=== PATIENT | female | born 1950 | race Caucasian/White ===

== ENCOUNTER 2024-04-16 02:54 | Day surgery (SDC) | payer MEDICARE, SELFPAY ==
[2024-04-06 08:59] VITALS: BMI 33.4
--- NOTE | 2024-04-06 09:21 | PC.NURSE ---
Report to the Outpatient Waiting Room, entrance under the green pavilion located off [facility], at time __0715am on date _04/16/24 . Planned Procedure Time: __09:15am .? Time changes happen often and if your time is changed the preop area will call you the afternoon before. - You and your visitor will be asked to self-screen and do not enter if you have any COVID symptoms. Please call surgeon if you need to reschedule. - A mask is optional within the hospital at this time. Patients may have clear liquids (water, carbonated beverages, clear teas, apple juice) until 3 hours prior to surgery with a maximum of 20 ounces. - No food from midnight until time of surgery and no smoking. This includes no chewing gum, candy or mints.(06:15am) Take only the following medications with a SIP of water on the morning of surgery: ___None DO NOT STOP ANY OF YOUR OTHER PRESCRIPTION MEDICATIONS PRIOR TO SURGERY EXCEPT THE FOLLOWING Medications to discontinue per physician Hold all Vitamins and supplements for 3 days prior per Anesthesia Date to take last dose____04/12/24 Please no make-up, nail beninese, hairspray, perfume, deodorant, or body powder the day of surgery.? No jewelry (including any body piercings) or valuables the day of surgery, leave them at home.? Please take a shower or bath the night before, or the morning of, surgery with an antibacterial soap.? Wear comfortable, loose fitting clothing.? - Jewelry must be removed prior to entering the operating room.? Rings and piercings that are not removed may be cut off. - The hospital will not accept responsibility for valuables.? - Please leave all valuables, including medications, at home the day of surgery. If you are going home after surgery, a licensed [employer] driver must drive you home.? - NO public transportation without another adult if you receive anesthesia. - We recommend that an adult stay with you for 24 hours following discharge. - We also recommend that you do not drive, make important decision, drink alcoholic beverages, or take any drugs that were not prescribed by your health care provider for at least 24 hours after your discharge time. Follow any additional instructions given to you from your surgeon. Telephone instructions given to patient and asked if any additional questions and then verbalized understanding. Patient advised to call surgeon office or pre surgery nurse liaison [phone] if any additional questions.
--- NOTE | 2024-04-11 12:11 | PM.IMHP ---
H&P: HPI History of Present Illness Date/Time: 04/11/24 12:11 Chief Complaint: TIMBO Narrative: mixed incontinence. Surgical treatment for TIMBO Review of Systems Review of Systems: All systems reviewed & are unremarkable except as noted in HPI and below [facility] Social History Social History Smoking status: Never smoker Alcohol intake: never Substance use: never Living arrangements: with family Additional living arrangements comments: Spiritual care concerns: No Meds Home Medications and Allergies Home Medications Medication Instructions Recorded Confirmed Type albuterol sulfate 90 mcg/actuation 90 mcg inhalation PRN PRN Wheezing 04/06/24 04/06/24 History aerosol inhaler calcium 500 mg-D3 400 unit-K 15 1 tablet PO DAILY 04/06/24 04/06/24 History mcg-folic 200 [id number] tablet ferrous gluconate 324 mg (38 mg 324 mg PO DAILY 04/06/24 04/06/24 History iron) tablet fluticasone fur. 200 mcg-umeclid 200 inh inhalation DAILY 04/06/24 04/06/24 History 62.5 mcg-vilant 25 mcg inhalat.powder (Trelegy Ellipta) fluticasone propionate 50 See Rx Instructions .Route .COMPLEX 04/06/24 04/06/24 History mcg/actuation nasal spray,suspension montelukast 10 mg tablet 10 mg PO HS 04/06/24 04/06/24 History multivitamin with minerals-folic 1 tablet PO DAILY 04/06/24 04/06/24 History acid 12 mcg chewable tablet (Centrum Adults) simvastatin 20 mg tablet 20 mg PO DAILY 04/06/24 04/06/24 History Allergies Allergy/AdvReac Type Severity Reaction Status Date / Time No Known Allergies Allergy Verified 04/06/24 08:58 Exam Narrative: + urethral mobility Assessment and Plan Assessment and plan (1) TIMBO (stress urinary incontinence, female): Code(s): N39.3 - Stress incontinence (female) (male) Status: Acute Assessment and Plan: urethral sling
--- NOTE | 2024-04-16 07:17 | WPDHPUPDATE1 ---
History and Physical Update Update Date/Time: 04/16/24 07:17 History and Physical has been reviewed, including an updated exam of the patient. There are NO changes in the patient's condition. Risks, benefits, and alternatives have been discussed and questions answered. Patient agrees to proceed with procedure.
[2024-04-16 08:32] LABS: Hemoglobin 11.7 g/dL (12.0-15.0)
--- NOTE | 2024-04-16 08:42 | P.PNAN_ITS ---
Anes - Initial Pre Proc Eval Procedure: Operation Date: 04/16/24 09:45 Proposed Procedures p Urethral Sling - Rk Jane MD Date/Time: 04/16/24 08:42 Surgeon: Rk Jane MD Pre Op Diagnosis: stress incont Patient Data Age: 73 Gender: F Height: 1.68 m Weight: 94 kg Allergies Allergy/AdvReac Type Severity Reaction Status Date / Time No Known Allergies Allergy Verified 04/06/24 08:58 Home Medications ?Medication ?Instructions ?Recorded ?Confirmed ?Type albuterol sulfate 90 mcg/actuation 90 mcg inhalation PRN PRN Wheezing 04/06/24 04/06/24 History aerosol inhaler calcium 500 mg-D3 400 unit-K 15 1 tablet PO DAILY 04/06/24 04/06/24 History mcg-folic 200 [id number] tablet ferrous gluconate 324 mg (38 mg 324 mg PO DAILY 04/06/24 04/06/24 History iron) tablet fluticasone fur. 200 mcg-umeclid 200 inh inhalation DAILY 04/06/24 04/06/24 History 62.5 mcg-vilant 25 mcg inhalat.powder (Trelegy Ellipta) fluticasone propionate 50 See Rx Instructions .Route .COMPLEX 04/06/24 04/06/24 History mcg/actuation nasal spray,suspension montelukast 10 mg tablet 10 mg PO HS 04/06/24 04/06/24 History multivitamin with minerals-folic 1 tablet PO DAILY 04/06/24 04/06/24 History acid 12 mcg chewable tablet (Centrum Adults) simvastatin 20 mg tablet 20 mg PO DAILY 04/06/24 04/06/24 History hydrocodone 5 mg-acetaminophen 325 1 tablet PO Q6H PRN pain #20 tabs 04/16/24 Rx mg tablet Laboratory Tests 04/16/24 08:26 Hgb Pending Hct Pending Patient hx anesthesia problems: none Family hx anesthesia problems: none Results Review: All pre-operative results and documents have been reviewed as part of the pre- operative evaluation. [facility] Past Medical History Medical History (Updated 04/16/24 @ 08:43 by Juan Bowman MD) Asthma Obesity Social History Social History Smoking status: Never smoker Alcohol intake: never Substance use: never Living arrangements: with family Additional living arrangements comments: Spiritual care concerns: No Anes - Eval Final PreProcedure Day of Procedure 04/16/24 08:42 Patient weight: obese Heart: regular rate and rhythm Lungs: clear to auscultation Airway: Mallampati scale class II Neurological: alert and oriented Last oral intake: >/= 8 hours ASA classification: III Emergent: no Anesthetic plan: proceed Anesthesia type and monitoring: general LMA and standard monitoring Results Review: All pre-operative results and documents have been reviewed as part of the pre- operative evaluation. Informed Consent: The patient's anesthetic plan and its attendant risks and benefits were discussed with the patient/family/POA. Questions were solicited and answers provided to the satisfaction of the patient/family/POA.
[2024-04-16 08:54] VITALS: BP 149/73; PULSE 71; TEMP 36.2; O2SAT 99; BMI 34.4
[2024-04-16] MEDS: ceFAZolin 2 GM/D5W 50 ML 2 GM/50 ML BAG IVPB (09:16)
--- NOTE | 2024-04-16 09:38 | SUR.OPER ---
10 ml of Bupivacaine 0.5% with epinephrine given
--- NOTE | 2024-04-16 09:51 | W.PM.PROC2 ---
Procedure Note - Detailed Date of Procedure 04/16/24 Pre-op Diagnosis stress incont Post-op Diagnosis Same Procedure Performed mid urethral sling cystoscopy Surgeon Rk Jane MD Anesthesia MAC and Local Indications This is a female with confirm stress urinary incontinence. She desires surgical correction. She understands the risks of bleeding, infection, injury to the urinary tract, vaginal mesh extrusion, urinary tract mesh erosion, obstructive voiding requiring a secondary procedure, hip and leg pain, dyspareunia, inability to improve overactive bladder symptoms. She agrees to proceed. Description of Procedure She was correctly identified. Informed consent obtained. She was brought the operating room. She was given appropriate anesthesia. She was given appropriate perioperative antibiotics. A time-out performed. I marked out the site of the inner thigh incisions. I anesthetized the skin and made those incisions. I anesthetized the anterior vaginal wall over the mid urethra. I made a 1 cm incision. I dissected out laterally taking great care not to injure the refilled vaginal wall. I passed the helical trocars. First on the left. Then on the right. I did this from the thigh incision towards the vaginal incision. The sling was connected to the trocars and brought out through the thigh incision. I tensioned the sling appropriately. I cut and the plastic sheaths. I then closed the incision with 2 0 Vicryl. On cystoscopy there is no tumors or surgical artifact. There was no surgical artifact in the urethra. I cut the excess sling material. Close incisions with glue. She was awakened and transferred to the PACU in stable condition. Implants Urethral sling Estimated Blood Loss 20 Drains No Packing No Pathology None sent Complications No immediate complications Condition Stable Disposition PACU
[2024-04-16 09:53] VITALS: BP 118/51; PULSE 79; RESP 16; O2SAT 100
[2024-04-16] MEDS: LACTATED RINGERS 1,000 ML 30 ML IV CONT (09:53)
[2024-04-16 10:23] VITALS: BP 118/51; PULSE 80; RESP 16; O2SAT 100
[2024-04-16] MEDS: oxyCODONE HCL (*CRX) 5 MG TAB IR PO (10:38)
[2024-04-16 10:53] VITALS: BP 132/58; PULSE 75; RESP 18; O2SAT 100
[2024-04-16 11:09] VITALS: BP 151/62; PULSE 69; RESP 18
== END 2024-04-16 11:10 | disposition home or self-care (01) ==
PROVIDERS: Visit Provider Urology
PROC: (CPT 57288; principal; 2024-04-16 09:45)
DX: N39.3 Stress incontinence (female) (male) (principal); J45.909 Unspecified asthma, uncomplicated; Z79.51 Long term (current) use of inhaled steroids; E66.9 Obesity, unspecified; Z68.34 Body mass index [BMI] 34.0-34.9, adult
CPT/HCPCS: 57288; 36415; 85014; 85018; A9270; C1771; J0690; J1100; J2003; J2405; J2704; J7030; J7120